=== PATIENT | male | born 1965 | race Caucasian/White ===

== ENCOUNTER 2019-11-19 09:46 | Emergency (ER) | payer OTHER ==
[2019-11-19] MEDS ORDERED: Dexamethasone 10 MG/ML SDV IM ONE (10:09)
--- NOTE | 2019-11-19 10:14 | EDM.PDOC ---
ED HPI GENERAL MEDICAL PROBLEM - General Chief Complaint: ENT Problem Stated Complaint: HARD TIME SWALLOWING Time Seen by Provider: 11/19/19 09:54 Source of Information: Reports: Patient History Limitations: Reports: No Limitations - History of Present Illness INITIAL COMMENTS - FREE TEXT/NARRATIVE: HISTORY OF PRESENT ILLNESS: Patient is a 54 year old male who reports 2 day history of odynophagia, and swollen lymph nodes submandibularly. Denies any swelling/pain near parotid. Able to swallow. No change in voice. Denies any rash or neck stiffness. No cp or dyspnea. Also reports post-nasal drip. No recent international travel. Tmax by home reading of 99.0F REVIEW OF SYSTEMS: Other than the symptoms associated with the present events, the following is reported with regard to recent health: General: (-) fever. HENT: (+) sore throat. Respiratory: (-) cough. Cardiovascular: (-) chest pain. GI: (-) abdominal pain. : (-) urinary complaints. Musculoskeletal: (-) other aches or pains. Endocrine: (-) generalized weakness. Neurological: (-) localized weakness. Skin: (-) rash PAST MEDICAL HISTORY: reviewed as per nursing notes SOCIAL HISTORY: reviewed as per nursing notes, MEDICATIONS: Per nurse's note ALLERGIES: Per nurse's note, reviewed by me PHYSICAL EXAMINATION: GENERALIZED APPEARANCE: well developed, well nourished in mild distress VITAL SIGNS: Per nurse's note, reviewed by me SKIN: Warm, dry; (-) cyanosis; (-) rash. HEAD: (-) scalp swelling, (-) tenderness. EYES: (-) conjunctival pallor, (-) scleral icterus. ENMT: (-) stridor; mucous membranes moist. no trismus. no stridor. tonsillar swelling and erythema. uvula midline. no phonation changes. airway patent. no swelling to floor of mouth. NECK: (-) SCM tenderness, (-) stiffness, submandibular swelling and tenderness. no parotid swelling. no brawny appearance to neck.no meningismus. CHEST AND RESPIRATORY: (-) rales, (-) rhonchi, (-) wheezes; breath sounds equal bilaterally. HEART AND CARDIOVASCULAR: (-) irregularity; (-) murmur, (-) gallop. EXTREMITIES: (-) deformity, (-) edema. NEURO AND PSYCH: Alert. Cranial nerves grossly intact; strength symmetric. gait steady DIAGNOSTICS: Strep (-) EMERGENCY DEPARTMENT COURSE AND TREATMENT: Patient's condition remained stable during Emergency Department evaluation. given Decadron for symptomatic improvement of swelling. Airway widely patent. No suspicion of Miles's, parotitis, epiglottitis or LOCAL OPERATOR at this time. Pt given precautions regarding these and to return immediately with any new or worsening symptoms. Has tender LAD, will start on antibiotics for lymphadenitis. Must f/u with pcp in 1-2 days. Expressed verbal understanding. PLAN AND FOLLOW-UP: Patient received written and verbal instructions regarding this condition. Return to ED immediately with any new or worsening symptoms. Follow up to be arranged by patient with pcp in 1-2 days for further evaluation. Given discharge precautions. Patient expressed verbal understanding. Throat Pain Score (Numeric/FACES): 10 - Related Data Allergies Allergy/AdvReac Type Severity Reaction Status Date / Time bupropion [From Wellbutrin] Allergy Hives Verified 11/19/19 10:05 Home Meds: Home Meds Levothyroxine [Synthroid] 50 mcg PO ACBRK 02/21/14 [History] Amoxicillin/Clavulanate K [Augmentin 875-125 MG] 1 tab PO BID #14 tablet [Rx] Celecoxib [CeleBREX] 11/19/19 [History] Past Medical History HEENT History: Reports: Impaired Vision Genitourinary History: Reports: Renal Calculus Endocrine/Metabolic History: Reports: Hypothyroidism - Infectious Disease History Infectious Disease History: Reports: Chicken Pox - Past Surgical History Male Surgical History: Reports: Kidney Stone Extraction Musculoskeletal Surgical History: Reports: Shoulder Surgery Social & Family History - Family History Family Medical History: Noncontributory - Caffeine Use Caffeine Use: Reports: Coffee - Recreational Drug Use Recreational Drug Use: No ED ROS GENERAL - Review of Systems Review Of Systems: See Below (see dictation) ED EXAM, GENERAL - Physical Exam Exam: See Below (see dictation) Course - Vital Signs Last Recorded V/S: Last Vital Signs Temp 98.7 F 11/19/19 09:59 Pulse 95 11/19/19 09:59 Resp 18 11/19/19 09:59 BP 130/85 11/19/19 09:59 Pulse Ox 98 11/19/19 09:59 - Orders/Labs/Meds Orders: Active Orders 24 hr Category Date Time Status CULTURE STREP A CONFIRMATION [RM] Stat Lab 11/19/19 10:10 Results STREP SCRN A RAPID W CULT CONF [RM] Stat Lab 11/19/19 10:10 Results Meds: Medications Discontinued Medications Generic Name Dose Route Start Last Admin Trade Name Antoine PRN Reason Stop Dose Admin Dexamethasone 8 mg 11/19/19 10:09 11/19/19 10:20 Dexamethasone IM 11/19/19 10:10 8 mg ONETIME ONE Administration Departure - Departure Time of Disposition: 10:34 Disposition: Home, Self-Care 01 Condition: Good Clinical Impression: Pharyngitis, Submandibular lymphadenitis - Discharge Information *PRESCRIPTION DRUG MONITORING PROGRAM REVIEWED*: Not Applicable *COPY OF PRESCRIPTION DRUG MONITORING REPORT IN PATIENT YESSI: Not Applicable Prescriptions: Amoxicillin/Clavulanate K [Augmentin 875-125 MG] 1 tab PO BID #14 tablet Instructions: Lymphangitis, Adult, Pharyngitis Referrals: Amanda Arcos DO [Primary Care Provider] - 2 Days Forms: ED Department Discharge Additional Instructions: The following information is given to patients seen in the emergency department who are being discharged to home. This information is to outline your options for follow-up care. We provide all patients seen in our emergency department with a follow-up referral. The need for follow-up, as well as the timing and circumstances, are variable depending upon the specifics of your emergency department visit. If you don't have a primary care physician on staff, we will provide you with a referral. We always advise you to contact your personal physician following an emergency department visit to inform them of the circumstance of the visit and for follow-up with them and/or the need for any referrals to a consulting specialist. The emergency department will also refer you to a specialist when appropriate. This referral assures that you have the opportunity for follow-up care with a specialist. All of these measure are taken in an effort to provide you with optimal care, which includes your follow-up. Under all circumstances we always encourage you to contact your private physician who remains a resource for coordinating your care. When calling for follow-up care, please make the office aware that this follow-up is from your recent emergency room visit. If for any reason you are refused follow-up, please contact the [facility] Emergency Department at and asked to speak to the emergency department charge nurse. Sepsis Event Note - Evaluation Sepsis Screening Result: No Definite Risk - Focused Exam Vital Signs: Vital Signs Temp Pulse Resp BP Pulse Ox 11/19/19 09:59 98.7 F 95 18 130/85 98 Date Exam was Performed: 11/19/19 Time Exam was Performed: 10:51 - My Orders Last 24 Hours: My Active Orders 11/19/19 10:10 CULTURE STREP A CONFIRMATION [RM] Stat STREP SCRN A RAPID W CULT CONF [RM] Stat - Assessment/Plan Last 24 Hours: My Active Orders 11/19/19 10:10 CULTURE STREP A CONFIRMATION [RM] Stat STREP SCRN A RAPID W CULT CONF [RM] Stat
== END 2019-11-19 11:06 | disposition home or self-care (01) ==
LOC: MW.ED 09:46
DX: J02.9 Acute pharyngitis, unspecified (principal); I88.9 Nonspecific lymphadenitis, unspecified; E03.9 Hypothyroidism, unspecified; Z88.8 Allergy status to other drugs, medicaments and biological substances; Z79.890 Hormone replacement therapy
CPT/HCPCS: 87081; 87880; 96372; 99284; J1100; 99283

== ENCOUNTER 2020-04-12 11:47 | Day surgery (SDC) | payer OTHER ==
[2020-04-12] MEDS ORDERED: Iopamidol 200-M 10 ML vial ITHECAL ONE (13:30)
[2020-04-12] MEDS ORDERED: Lidocaine 2% 5 ML SDV INJECT ONE (13:30)
[2020-04-12] MEDS ORDERED: Betamethasone Acetate/Betamethasone Sod Phosphate 30 MG/5 ML MDV EPIDUR ONE (13:30)
[2020-04-12] MEDS ORDERED: Ropivacaine 0.5% 5 MG/ML 30 ML SDV INJECT ONE (13:30)
--- NOTE | 2020-04-12 20:49 | OR ---
SURGEON: Caitlin Chavez D.O. DATE OF PROCEDURE: 04/12/2020 OR STAFF PRESENT: 1. Pearl Doan CRNA. 2. Raya Jackson RN. 3. Gerry Spann RT. WOUND CLASS: I. PREOPERATIVE DIAGNOSES: 1. Lumbar facet arthropathy. 2. Lumbosacral facet joint syndrome. 3. Chronic low back pain. POSTOPERATIVE DIAGNOSES: 1. Lumbar facet arthropathy. 2. Lumbosacral facet joint syndrome. 3. Chronic low back pain. PROCEDURES PERFORMED: 1. Bilateral L3, L4 and L5 medial branch blocks. 2. Fluoroscopic guidance for needle placement. 3. Local with oral Valium for sedation. SCREENING QUESTIONS: The patient answered "No" to all the following questions: 1. Are you allergic to iodine, Betadine or latex? 2. Do you have a bleeding disorder? 3. Are you on anti-inflammatories or blood thinners? 4. Do you have any current local or systemic infections? DESCRIPTION OF PROCEDURE: The patient had the procedure thoroughly explained including risks, benefits and alternatives. Consent was signed in my clinic indicating understanding and willingness to proceed. The patient presented to [facility] and was escorted to the dressing room to disrobe and change into a hospital gown. Preoperative history and screening were performed by my nurse. Vital signs were taken and stable. The patient reported that Valium 10 milligrams was taken prior to the procedure. The patient was brought back to the procedure room and placed in the prone position on the procedure room table. A pillow was placed under the abdomen in order to flatten the lumbar lordosis. The back was prepped with ChloraPrep and sterilely draped. All personnel in the procedure room were dressed in appropriate attire including surgical scrubs, head and shoe covers. This was to ensure sterility while in the treatment room. During the time fluoroscopy was in use all personnel in the operating room wore lead quintanilla with thyroid collars. Sterile technique was used during the procedure. Then the fluoroscope was positioned to provide a right oblique view for the right L4 medial branch. This was begun by anesthetizing the skin and soft tissues. The fluoroscope was positioned and a sterile 22-gauge 3.5 inch needle was placed at the junction of the transverse process in the superior articular process of the L5 vertebral body. Precise needle placement was confirmed by fluoroscopy. Then 0.2 cubic centimeters of IsoVue-200 contrast dye was injected through microbore tubing under live fluoroscopy and showed no intravascular flow pattern and adequate flow over the target medial branch. After negative aspiration, 0.5 cubic centimeters of 0.5% Ropivacaine was injected without complications. The fluoroscope was then positioned to provide a right L5 dorsal ramus block. This was begun by anesthetizing the skin and soft tissues over the right sacral sulcus. Then using fluoroscopic guidance, a sterile 22-gauge 3.5 inch spinal needle was positioned at the right sacral ala. Precise needle placement was confirmed by fluoroscopy in AP and oblique views, and 0.2 cubic centimeters of IsoVue-200 contrast dye was injected through microbore tubing under live fluoroscopy and showed no intravascular flow pattern and adequate flow over the target nerves. After negative aspiration, 0.5 cubic centimeters of 0.5% Ropivacaine was injected. No complications were noted. The fluoroscope was positioned then to provide a left L4 medial branch block. The skin was anesthetized. Then a 22-gauge 3.5 inch spinal needle was positioned at the junction of the transverse process in the superior articular process of the L5 vertebral body on the left. Precise needle placement was confirmed by fluoroscopy and with 0.2 cubic centimeters of IsoVue-200 contrast dye injected through microbore tubing showing no intravascular flow pattern and adequate flow over the target medial branch of L4 on the left. Then 0.5 cubic centimeters of 0.5% Ropivacaine was injected after negative aspiration without complications. Then the fluoroscope was positioned for the left L5 dorsal ramus block. This was begun by anesthetizing the skin and soft tissues. Then with fluoroscopic guidance a sterile 22-gauge 3.5 inch spinal needle was positioned at the left sacral ala. Precise needle placement was confirmed with 0.2 cubic centimeters of IsoVue-200 contrast dye injected through microbore tubing under live fluoroscopy showing no intravascular flow pattern and adequate flow over the target L5 nerve. Then 0.5 cubic centimeters of 0.5% Ropivacaine was injected after negative aspiration without complications. The procedure was well tolerated and vital signs were stable during and after the procedure. The staff escorted the patient to the recovery area. The patient was given both oral and written discharge and followup instructions. The patient will follow up with a pain diary which will be evaluated over this evening doing things that would normally cause pain. We will evaluate the efficacy of the diagnostic lumbar medial branch blocks as the patient will follow up in the clinic the next day. The patient was given both oral and written discharge and followup instructions. The patient voiced understanding including understanding of those signs and symptoms that would require emergency care and knows how to contact the office if there are any questions or concerns in the meantime. PREOPERATIVE PAIN: 7/10. POSTOPERATIVE PAIN: 0/10. FOLLOWUP: In the Pain Clinic with pain diary in one day. QAMAR / IRIS /[id number] MONICO
== END 2020-04-12 14:35 ==
LOC: MW.SDS 11:47
PROVIDERS: ATTEND Anesthesiology
DX: G89.29 Other chronic pain (principal); M51.36 Other intervertebral disc degeneration, lumbar region; M47.817 Spondylosis without myelopathy or radiculopathy, lumbosacral region; M79.18 Myalgia, other site; Z87.891 Personal history of nicotine dependence; Z88.6 Allergy status to analgesic agent
CPT/HCPCS: 64493; 64494; 64495; J0702; 64450

== ENCOUNTER 2020-04-26 11:05 | Day surgery (SDC) | payer OTHER ==
[2020-04-26] MEDS ORDERED: Iopamidol 200-M 10 ML vial ITHECAL ONE (12:00)
[2020-04-26] MEDS ORDERED: Betamethasone Acetate/Betamethasone Sod Phosphate 30 MG/5 ML MDV EPIDUR ONE (12:00)
[2020-04-26] MEDS ORDERED: Ropivacaine 0.5% 5 MG/ML 30 ML SDV INJECT ONE (12:00)
[2020-04-26] MEDS ORDERED: Lidocaine 2% 5 ML SDV INJECT ONE (12:00)
--- NOTE | 2020-04-26 15:04 | OR ---
SURGEON: Caitlin Chavez D.O. DATE OF PROCEDURE: 04/26/2020 PREOPERATIVE DIAGNOSES: 1. Lumbar spondylosis. 2. Lumbar degenerative disk disease. 3. Chronic low back pain. POSTOPERATIVE DIAGNOSES: 1. Lumbar spondylosis. 2. Lumbar degenerative disk disease. 3. Chronic low back pain. PROCEDURES PERFORMED: 1. Bilateral L3-4-5 medial branch blocks. 2. Fluoroscopic guidance for needle placement. 3. Local with oral Valium for sedation. ASSISTANTS: OR staff present: 1. RT Parker. 2. Jose Lozoya RN. 3. Raya Jackson RN. WOUND CLASS: I. SCREENING QUESTIONS: The patient answered "No" to all the following questions: 1. Are you allergic to iodine, Betadine or latex? 2. Do you have a bleeding disorder? 3. Are you on anti-inflammatories or blood thinners? 4. Do you have any current local or systemic infections? DESCRIPTION OF PROCEDURE: The patient had the procedure thoroughly explained including risks, benefits and alternatives. Consent was signed in my clinic indicating understanding and willingness to proceed. The patient presented to [facility] and was escorted to the dressing room to disrobe and change into a hospital gown. Preoperative history and screening were performed by my nurse. Vital signs were taken and stable. The patient reported that Valium 10 milligrams was taken prior to the procedure. The patient was brought back to the procedure room and placed in the prone position on the procedure room table. A pillow was placed under the abdomen in order to flatten the lumbar lordosis. The back was prepped with ChloraPrep and sterilely draped. All personnel in the procedure room were dressed in appropriate attire including surgical scrubs, head and shoe covers. This was to ensure sterility while in the treatment room. During the time fluoroscopy was in use all personnel in the operating room wore lead quintanilla with thyroid collars. Sterile technique was used during the procedure. Then the fluoroscope was positioned to provide a right oblique view for the right L 3 and L4 medial branch. This was begun by anesthetizing the skin and soft tissues. The fluoroscope was positioned and a sterile 22-gauge 3.5 inch needle was placed at the junction of the transverse process in the superior articular process of the L4 and L5 vertebral body. Precise needle placement was confirmed by fluoroscopy. Then 0.2 cubic centimeters of IsoVue-200 contrast dye was injected through microbore tubing under live fluoroscopy and showed no intravascular flow pattern and adequate flow over the target medial branch. After negative aspiration, 0.5 cubic centimeters of 0.5% Ropivacaine was injected without complications. The fluoroscope was then positioned to provide a right L5 dorsal ramus block. This was begun by anesthetizing the skin and soft tissues over the right sacral sulcus. Then using fluoroscopic guidance, a sterile 22-gauge 3.5 inch spinal needle was positioned at the right sacral ala. Precise needle placement was confirmed by fluoroscopy in AP and oblique views, and 0.2 cubic centimeters of IsoVue-200 contrast dye was injected through microbore tubing under live fluoroscopy and showed no intravascular flow pattern and adequate flow over the target nerves. After negative aspiration, 0.5 cubic centimeters of 0.5% Ropivacaine was injected. No complications were noted. The fluoroscope was positioned then to provide a left L3 and L4 medial branch block. The skin was anesthetized. Then a 22-gauge 3.5 inch spinal needle was positioned at the junction of the transverse process in the superior articular process of the L4 and L5 vertebral body on the left. Precise needle placement was confirmed by fluoroscopy and with 0.2 cubic centimeters of IsoVue-200 contrast dye injected through microbore tubing showing no intravascular flow pattern and adequate flow over the target medial branch of L4 on the left. Then 0.5 cubic centimeters of 0.5% Ropivacaine was injected after negative aspiration without complications. Then the fluoroscope was positioned for the left L5 dorsal ramus block. This was begun by anesthetizing the skin and soft tissues. Then with fluoroscopic guidance a sterile 22-gauge 3.5 inch spinal needle was positioned at the left sacral ala. Precise needle placement was confirmed with 0.2 cubic centimeters of IsoVue-200 contrast dye injected through microbore tubing under live fluoroscopy showing no intravascular flow pattern and adequate flow over the target L5 nerve. Then 0.5 cubic centimeters of 0.5% Ropivacaine was injected after negative aspiration without complications. The procedure was well tolerated and vital signs were stable during and after the procedure. The staff escorted the patient to the recovery area. The patient was given both oral and written discharge and followup instructions. The patient will follow up with a pain diary which will be evaluated over this evening doing things that would normally cause pain. We will evaluate the efficacy of the diagnostic lumbar medial branch blocks as the patient will follow up in the clinic the next day. The patient was given both oral and written discharge and followup instructions. The patient voiced understanding including understanding of those signs and symptoms that would require emergency care and knows how to contact the office if there are any questions or concerns in the meantime. PREOPERATIVE PAIN: 7/10. POSTOPERATIVE PAIN: 0/10. FOLLOWUP: In the Pain Clinic with pain diary in the morning. QAMAR / IRIS /[id number] MONICO
== END 2020-04-26 12:53 | disposition home or self-care (01) ==
LOC: MW.SDS 11:05
PROVIDERS: ATTEND Anesthesiology
DX: G89.29 Other chronic pain (principal); M47.817 Spondylosis without myelopathy or radiculopathy, lumbosacral region; M79.18 Myalgia, other site; M51.36 Other intervertebral disc degeneration, lumbar region; Z88.6 Allergy status to analgesic agent; Z87.891 Personal history of nicotine dependence; Z79.899 Other long term (current) drug therapy
CPT/HCPCS: 64493; 64494; 64495; J0702

== ENCOUNTER 2020-06-14 10:35 | Day surgery (SDC) | payer OTHER ==
[~2020-06-14 10:35] MED LIST: Betamethasone Acetate/Betamethasone Sod Phosphate 30 MG/5 ML MDV EPIDUR ONE; Iopamidol 200-M 10 ML vial ITHECAL ONE; Lidocaine 2% 5 ML SDV INJECT ONE; Ropivacaine 0.5% 5 MG/ML 30 ML SDV INJECT ONE
[2020-06-14] MEDS ORDERED: Betamethasone Acetate/Betamethasone Sod Phosphate 30 MG/5 ML MDV EPIDUR ONE (12:13)
[2020-06-14] MEDS ORDERED: Lidocaine 2% 5 ML SDV INJECT ONE (12:13)
[2020-06-14] MEDS ORDERED: Ropivacaine 0.5% 5 MG/ML 30 ML SDV INJECT ONE (12:13)
[2020-06-14] MEDS ORDERED: Lidocaine 2% 5 ML SDV ONE (13:39)
--- NOTE | 2020-06-14 15:29 | OR ---
SURGEON: Caitlin Chavez D.O. DATE OF PROCEDURE: 06/14/2020 PRIMARY SURGEON: Caitlin Chavez DO PREOPERATIVE DIAGNOSES: 1. Chronic low back pain. 2. Lumbar spondylosis. 3. Lumbar facet syndrome. POSTOPERATIVE DIAGNOSES: 1. Chronic low back pain. 2. Lumbar spondylosis. 3. Lumbar facet syndrome. PROCEDURES PERFORMED: 1. Bilateral L3, L4, L5 radiofrequency ablation. 2. Fluoroscopic guidance for needle placement. 3. Local with oral Valium for sedation. ASSISTANTS: OR staff present: 1. Pearl Dueñas RN. 2. Raya Jackson RN. 3. Gerry Spann RT. WOUND CLASS: I. JOINTS FOR RADIOFREQUENCY ABLATION: Bilateral L4-5 and L5-S1 zygapophyseal joint. SCREENING QUESTIONS: The patient answered "No" to all the followin. Are you allergic to iodine, Betadine or latex? 2. Do have a bleeding disorder? 3. Are you on any anti-inflammatories or blood thinners? 4. Do you have any current local or systemic infections? RESPONSE TO LAST PROCEDURE: The patient reports greater than 80% pain reduction lasting the duration of the previous diagnostic medial branch blocks. DESCRIPTION OF PROCEDURE: The patient had the procedure thoroughly explained including all possible risks, benefits and alternatives. A consent was signed in my clinic indicating understanding and willingness to proceed. The patient presented to [facility] and was escorted to the dressing room to disrobe and change into a hospital gown. Preoperative vital signs were taken. The patient reported taking Valium 10 milligrams at home prior to the procedure. The patient was brought to the procedure room and placed in the prone position on the procedure room table. A pillow was placed under the hips in order to flatten the lumbar lordosis. The back was prepped with ChloraPrep times three and sterilely draped. All personnel in the operating room were dressed in appropriate attire including surgical scrubs, head and shoe covers. This was to ensure sterility while in the treatment room. During the time fluoroscopy was in use all personnel in the operating room wore lead quintanilla with thyroid collars. Sterile technique was used during the procedure. The skin overlying the target nerves were anesthetized with 2% Lidocaine Preservative-Free in a sterile 27-gauge 1.5 inch needle. The deep tissues were likewise infiltrated. Standard insulated radiofrequency probe needles with 10 millimeter active tips were inserted at the appropriate sites for the right and left L3, L4 and 15 mm active tips for the L5 dorsal ramus nerves for radiofrequency ablation. Proper placement was determined both fluoroscopically and with test stimulation at each primary site with 50 hertz for sensory and 2 hertz for motor stimulation. No radicular stimulation was identified and no distal motor activity was noted in the lower extremities. Radiofrequency denervation was performed at each site for 90 seconds at 80 degrees centigrade and repeated times two. The patient's nerves were numbed with a mixture of 12 milligrams of Celestone and 3 cubic centimeters of 2% Lidocaine and 3 cubic centimeters of 0.5% Ropivacaine. This was done for patient comfort prior to lesioning; 1 cubic centimeter total was injected at each site prior. Then the radiofrequency ablation needles were advanced under direct fluoroscopy and viewed in AP and oblique views. Stimulatory patterns were found to be appropriate prior to each nerve level was lesioned twice. The patient tolerated the procedure well and had no complications. The vital signs were stable during and after the procedure. The staff escorted the patient to the recovery room area and the patient was released in stable condition after a brief stay in the recovery room monitored by the nurse. The patient was given both oral and written discharge and follow up instructions. The patient understands and knows to contact the office if there are any questions or concerns in the meantime. The patient has an appointment to follow up in three weeks. PREOPERATIVE PAIN: 5/10. POSTOPERATIVE PAIN: 1/10. FOLLOWUP: In the Pain Clinic in 1 month with pain diary. QAMAR / IRIS /[id number] MONICO
== END 2020-06-14 13:58 | disposition home or self-care (01) ==
LOC: MW.SDS 10:35
PROVIDERS: ATTEND Anesthesiology
DX: G89.29 Other chronic pain (principal); M51.36 Other intervertebral disc degeneration, lumbar region; M79.18 Myalgia, other site; M47.817 Spondylosis without myelopathy or radiculopathy, lumbosacral region; Z87.891 Personal history of nicotine dependence; Z88.8 Allergy status to other drugs, medicaments and biological substances
CPT/HCPCS: 64635; 64636; J0702; J2001